=== PATIENT | male | born 1975 | race Caucasian/White ===

== ENCOUNTER 2024-09-29 15:26 | Emergency (ER) | payer BC, OTHER, SELFPAY ==
[2024-09-29 15:35] VITALS: BP 168/88; PULSE 76; TEMP 36.7; O2SAT 96; BMI 37.2
--- NOTE | 2024-09-29 16:58 | ED_ITS ---
HPI HPI - Neck Pain/Injury General Chief Complaint: Neck Pain/Injury Stated Complaint: PAIN BACK OF HEAD/SHOULDER/NECK Time Seen by Provider: 09/29/24 16:35 Source: patient Mode of arrival: walk-in History of Present Illness HPI Narrative: Patient is a 49-year-old male with a history of diabetes who presents to the emergency department for 2-day history of right-sided neck pain radiating into the right shoulder. He reports a history of similar previously. He has had no injuries or traumas. He states he last had imaging of his neck and back about 1 year ago. He denies numbness or tingling to the hands but does feel the pain radiate into the right arm. No medications taken prior to arrival. Related Data Home Medications ?Medication ?Instructions ?Recorded ?Confirmed dicyclomine 20 mg tablet 20 mg PO Q8H 09/29/24 09/29/24 hydrocortisone 10 mg tablet 10 mg PO Q12H 09/29/24 09/29/24 hydrocortisone 2.5 % topical cream 1 applic topical Q12H 09/29/24 09/29/24 levothyroxine 200 mcg tablet 200 mcg PO DAILY 09/29/24 09/29/24 lisinopril 20 2 tab PO DAILY 09/29/24 09/29/24 mg-hydrochlorothiazide 12.5 mg tablet pantoprazole 40 mg tablet,delayed 40 mg PO DAILY 09/29/24 09/29/24 release Previous Rx's ?Medication ?Instructions ?Recorded hydrocodone 5 mg-acetaminophen 325 1 tab PO Q6H PRN pain 3 days #12 09/29/24 mg tablet tabs ketorolac 10 mg tablet 10 mg PO TID PRN pain #10 tabs 09/29/24 methocarbamol 750 mg tablet 750 mg PO TID PRN pain #20 tabs 09/29/24 Allergies Allergy/AdvReac Type Severity Reaction Status Date / Time No Known Drug Allergies Allergy Verified 09/29/24 15:35 Opioid HPI Opioid Management Most Recent Opioid Data: No Data to Display Review of Systems ROS Constitutional Denies: fever or chills Ears, nose, mouth, and throat Denies: throat pain or nasal discharge Respiratory Denies: shortness of breath or cough Gastrointestinal Denies: nausea or vomiting Musculoskeletal Reports: back pain and neck pain Integumentary/Breast Denies: rash Neurological Denies: numbness in extremities or weakness in extremities Hematologic/Lymphatic Denies: easy bruising or easy bleeding PFSH PFSH Social History Little interest or pleasure in doing things: not at all Feeling down, depressed, or hopeless: not at all Exam Narrative Exam Narrative: Gen.: Awake, alert, in no distress Head: Normocephalic, atraumatic ENT: Moist mucous membranes; tenderness diffusely of the right paracervical muscles into the right trapezius area. Patient is able to shrug his shoulders. Respiratory: No respiratory distress, lungs clear bilaterally Cardio: Regular rate and rhythm Gastrointestinal: Abdomen is soft, nondistended and nontender to palpation Extremities: Moves extremities equally, no injuries noted; normal plate cleaner strength in the bilateral hands with normal biceps tendon strength in the upper arms. Psych: Normal mood and affect Neuro: No focal neuro deficit Skin: Warm, dry, intact Constitutional Vital Signs, click to edit/add: Last Vital Signs Temp 98.1 F 09/29/24 15:35 Pulse 76 09/29/24 15:35 Resp 18 09/29/24 15:35 BP 168/88 H 09/29/24 15:35 Pulse Ox 96 09/29/24 15:35 Course Vital Signs Vital signs: Vital Signs Temperature 98.1 F 09/29/24 15:35 Pulse Rate 76 09/29/24 15:35 Respiratory Rate 18 09/29/24 15:35 Blood Pressure 168/88 H 09/29/24 15:35 Pulse Oximetry 96 09/29/24 15:35 Temperature 98.1 F 09/29/24 15:35 Pulse Rate 76 09/29/24 15:35 Respiratory Rate 18 09/29/24 15:35 Blood Pressure 168/88 H 09/29/24 15:35 Pulse Oximetry 96 09/29/24 15:35 MDM - Neck Pain/Injury MDM Narrative Medical decision making narrative: Exam is consistent with acute on chronic cervical radiculopathy versus cervical sprain. Patient given intramuscular Solu-Medrol, we will avoid additional oral steroids for home due to history of diabetes. He was given Percocet and Norflex. Prescriptions for [place], Toradol, Robaxin. Rest, ice, gentle stretching. Follow-up with PCP and return to the ER if symptoms change or worsen. SUPERVISED APC VISIT, PHYSICIAN ATTESTATION: Based on the medical record the care appears appropriate. ? Medical Records Attestation: I reviewed the patient's medical records. Discharge Plan Discharge Chief Complaint: Neck Pain/Injury Clinical Impression: Cervical sprain Patient Disposition: Home, Self-Care Time of Disposition Decision: 16:55 Condition: Good Prescriptions / Home Meds: New hydrocodone-acetaminophen 5-325 mg tablet 1 tab PO Q6H PRN (Reason: pain) 3 Days Qty: 12 0RF Rx Instructions: M54.5 ketorolac 10 mg tablet 10 mg PO TID PRN (Reason: pain) Qty: 10 0RF methocarbamol 750 mg tablet 750 mg PO TID PRN (Reason: pain) Qty: 20 0RF No Action dicyclomine 20 mg tablet 20 mg PO Q8H hydrocortisone 10 mg tablet 10 mg PO Q12H hydrocortisone 2.5 % cream 1 applic TOPICAL Q12H levothyroxine 200 mcg tablet 200 mcg PO DAILY lisinopril-hydrochlorothiazide 20-12.5 mg tablet 2 tab PO DAILY pantoprazole 40 mg tablet,delayed release (DR/EC) 40 mg PO DAILY Print Language: [place] Instructions: Acute Neck Pain (ED) Referrals: Physician,Non-Staff, MD [Primary Care Provider] - 1 week
[2024-09-29] MEDS: METHYLPREDNISOLONE SOD SUCC PF 125 MG/2 ML VIAL IM (17:02)
[2024-09-29] MEDS: OXYCODONE HCL/ACETAMINOPHEN 5MG/325MG 1 TAB PO (17:02)
[2024-09-29] MEDS: ORPHENADRINE 60 MG/ 2 ML VIAL IM (17:02)
[2024-09-29 17:07] VITALS: BP 136/88; PULSE 88; O2SAT 98
== END 2024-09-29 17:08 | disposition home or self-care (01) ==
PROVIDERS: Emergency Provider Emergency Medicine; PCP Family Medicine
DX: S13.4XXA Sprain of ligaments of cervical spine, initial encounter (principal); X58.XXXA Exposure to other specified factors, initial encounter; E11.9 Type 2 diabetes mellitus without complications
CPT/HCPCS: 96372; 99284; J2360; J2919